=== PATIENT | female | born 1980 | race Caucasian/White ===

== ENCOUNTER 2017-10-30 11:18 | Emergency (ER) | payer SELFPAY ==
[~2017-10-30] VITALS: Ht 162.6 cm; Wt 84.0 kg
[2017-10-30 11:21] VITALS: BP 118/64
== END 2017-10-30 18:00 | disposition left against medical advice (07) ==
LOC: ER 11:18
DX: M25.511 Pain in right shoulder (principal); Z53.21 Procedure and treatment not carried out due to patient leaving prior to being seen by health care provider